=== PATIENT | male | born 2000 | race American Indian/Alaskan Native ===

== ENCOUNTER 2021-12-19 03:06 | Inpatient (IN) ==
[2021-12-19] MEDS ORDERED: Charcoal ACTIVATED 25 GM/120 ML BTL PO ONE (03:48)
[2021-12-19] MEDS ORDERED: Lactated Ringers 1000 ml BAG 1,000 ML IV ONE (03:48)
[2021-12-19 04:06] LABS: ABS Lymphocytes 0.9 10^3/ul (1.0-4.8); ABS Monocytes 1.1 10^3/ul (0-0.8); ABS Neutrophils 13.5 10^3/ul (1.5-7.7); Eosinophil % 0.2 %; Hematocrit 49 % (42-52); Hemoglobin 16.1 g/dL (14.0-18.0); Lymphocyte % 5.7 %; Mean Corpuscular HGB Conc 33 g/dL (31-36); Mean Corpuscular Hemoglobin 27 pg (27-31); Mean Corpuscular Volume 82 fL (80-94); Mean Platelet Volume 7.7 fL (7.4-10.4); Platelet Count 299 10^3/uL (150-450); Red Blood Count 5.91 10^6 /uL (4.18-5.48); Red Cell Distribution Width 14 % (10-15); White Blood Count 15.5 10^3/uL (3.5-10.8)
[2021-12-19 04:10] LABS: Urine Appearance Clear; Urine Bilirubin Negative (Negative); Urine Blood Negative (Negative); Urine Color Amber; Urine Glucose 1+(50 mg/dL) (Negative); Urine Ketones 2+ (Negative); Urine Nitrite Negative (Negative); Urine Protein 1+(30 mg/dL) (Negative); Urine Specific Gravity 1.041 (1.002-1.030); Urine Urobilinogen Positive (Negative)
[2021-12-19 04:16] LABS: Urine Bacteria Absent (Absent); Urine Red Blood Cell 2+(6-10/hpf) (Absent); Urine Squamous Epithelial Cell Present (Absent); Urine White Blood Cell Trace(0-5/hpf) (Absent)
[2021-12-19 04:22] LABS: Urine Benzodiazepine Screen None Detected (None Detect); Urine Cannabinoids Screen None Detected (None Detect); Urine Opiates Screen None Detected (None Detect)
[2021-12-19 04:38] LABS: Albumin 4.7 g/dL (3.2-5.2); Albumin/Globulin Ratio 1.8 (1-3); Alcohol, S < 13 mg/dL (<13); Alkaline Phosphatase 100 U/L (35-149); Anion Gap 12 mmol/L (2-11); Blood Urea Nitrogen 13 mg/dL (6-24); CO2 Carbon Dioxide 21 mmol/L (22-32); Calcium 9.5 mg/dL (8.6-10.3); Chloride 103 mmol/L (101-111); Globulin 2.6 g/dL (2-4); Glucose 140 mg/dL (70-100); Potassium 3.8 mmol/L (3.5-5.0); Salicylate < 2.50 mg/dL (<30); Sodium 136 mmol/L (135-145); Total Protein 7.3 g/dL (6.4-8.9); eGFR CKD-EPI 123.8 (>60)
[2021-12-19 04:43] LABS: Acetaminophen 123 mcg/mL
[2021-12-19 04:52] LABS: TSH Ultra Thyroid Stim Horm 0.93 mcIU/mL (0.34-5.60)
[2021-12-19 04:55] LABS: ALT 907 U/L (7-52); AST 1478 U/L (13-39)
[2021-12-19] MEDS ORDERED: ACETYLCYSTEINE IV ONE ×5 (05:15→22:00)
[2021-12-19] MEDS ORDERED: D5W IV ONE ×5 (05:15→22:00)
[2021-12-19 05:58] LABS: INR 1.81 (0.86-1.15)
[2021-12-19] MEDS ORDERED: Droperidol 5 MG/2 ML 2 ML VIAL IV ONE (06:11)
[2021-12-19] MEDS ORDERED: Ondansetron 4 mg VIAL 2 MG/ML 2 ml VIAL IV PRN (06:13)
[2021-12-19] MEDS ORDERED: diPHENhydraMINE IV 50 MG/ML 1 ml VIAL (BENADRYL) ONE (06:28)
[2021-12-19] MEDS ORDERED: diPHENhydraMINE IV 50 MG/ML 1 ml VIAL (BENADRYL) SLOW PUSH ONE (06:29)
[2021-12-19] MEDS ORDERED: diPHENhydraMINE IV 50 MG/ML 1 ml VIAL (BENADRYL) IV PRN (06:51)
[2021-12-19] MEDS ORDERED: FOMEPIZOLE IV ONE (07:00)
[2021-12-19] MEDS ORDERED: Pantoprazole VIAL 40 MG VIAL IV SCH (07:00)
[2021-12-19] MEDS ORDERED: NS 0.9% IV ONE (07:00)
[2021-12-19] MEDS: Pantoprazole VIAL 40 MG VIAL IV SCH (09:40)
[2021-12-19] MEDS ORDERED: ACETYLCYSTEINE IV SCH (10:15)
[2021-12-19] MEDS ORDERED: D5W IV SCH (10:15)
[2021-12-19 10:42] LABS: INR 1.87 (0.86-1.15)
[2021-12-19 10:50] LABS: Albumin 3.9 g/dL (3.2-5.2); Albumin/Globulin Ratio 1.9 (1-3); Calcium 8.8 mg/dL (8.6-10.3); Globulin 2.1 g/dL (2-4); Potassium 3.5 mmol/L (3.5-5.0); Total Bilirubin 1.2 mg/dL (0.2-1.0); eGFR CKD-EPI 126.9 (>60)
[2021-12-19 10:56] LABS: HIV 4th Generation Nonreactive (Nonreactive)
[2021-12-19 14:40] LABS: INR 1.76 (0.86-1.15)
[2021-12-19 15:10] LABS: Albumin 3.8 g/dL (3.2-5.2); Albumin/Globulin Ratio 1.7 (1-3); Direct Bilirubin 0.3 mg/dL (0.03-0.18); Globulin 2.2 g/dL (2-4); Indirect Bilirubin 0.8 mg/dL (0.3-1.0); Total Bilirubin 1.1 mg/dL (0.2-1.0)
[2021-12-19 19:57] LABS: INR 1.66 (0.86-1.15)
[2021-12-19 20:39] LABS: Acetaminophen < 15 mcg/mL; Albumin 4.1 g/dL (3.2-5.2); Albumin/Globulin Ratio 1.7 (1-3); Alkaline Phosphatase 76 U/L (35-149); Anion Gap 9 mmol/L (2-11); Blood Urea Nitrogen 5 mg/dL (6-24); CO2 Carbon Dioxide 24 mmol/L (22-32); Chloride 105 mmol/L (101-111); Globulin 2.4 g/dL (2-4); Glucose 130 mg/dL (70-100); Potassium 3.6 mmol/L (3.5-5.0); Sodium 138 mmol/L (135-145); Total Protein 6.5 g/dL (6.4-8.9); eGFR CKD-EPI 130.3 (>60)
[2021-12-19 21:01] LABS: ALT 1744 U/L (7-52); AST 1788 U/L (13-39)
[2021-12-20 04:37] LABS: ABS Eosinophils 0.3 10^3/ul (0-0.6); ABS Lymphocytes 1.8 10^3/ul (1.0-4.8); ABS Monocytes 0.7 10^3/ul (0-0.8); ABS Neutrophils 6.5 10^3/ul (1.5-7.7); Eosinophil % 3.6 %; Hematocrit 45 % (42-52); Hemoglobin 15.4 g/dL (14.0-18.0); Lymphocyte % 19.4 %; Mean Corpuscular HGB Conc 34 g/dL (31-36); Mean Corpuscular Hemoglobin 28 pg (27-31); Mean Corpuscular Volume 82 fL (80-94); Mean Platelet Volume 7.5 fL (7.4-10.4); Platelet Count 254 10^3/uL (150-450); Red Blood Count 5.52 10^6 /uL (4.18-5.48); Red Cell Distribution Width 14 % (10-15); White Blood Count 9.4 10^3/uL (3.5-10.8)
[2021-12-20 04:51] LABS: INR 1.55 (0.86-1.15)
[2021-12-20 05:52] LABS: Albumin/Globulin Ratio 1.8 (1-3); Calcium 8.9 mg/dL (8.6-10.3); Globulin 2.2 g/dL (2-4); Potassium 4.1 mmol/L (3.5-5.0); Total Bilirubin 1.4 mg/dL (0.2-1.0); Total Protein 6.2 g/dL (6.4-8.9); eGFR CKD-EPI 127.4 (>60)
[2021-12-20] MEDS: Pantoprazole VIAL 40 MG VIAL IV SCH (09:18)
[2021-12-20 15:08] LABS: Albumin 3.6 g/dL (3.2-5.2); Albumin/Globulin Ratio 1.8 (1-3); Alkaline Phosphatase 57 U/L (35-149); Blood Urea Nitrogen 3 mg/dL (6-24); CO2 Carbon Dioxide 29 mmol/L (22-32); Calcium 8.3 mg/dL (8.6-10.3); Chloride 105 mmol/L (101-111); Glucose 107 mg/dL (70-100); Sodium 139 mmol/L (135-145); Total Protein 5.6 g/dL (6.4-8.9); eGFR CKD-EPI 130.3 (>60)
[2021-12-20 15:59] LABS: Anion Gap 5 mmol/L (2-11)
[2021-12-20 18:02] LABS: ALT 1022 U/L (7-52)
[2021-12-21 07:00] LABS: ABS Eosinophils 0.5 10^3/ul (0-0.6); ABS Lymphocytes 2.1 10^3/ul (1.0-4.8); ABS Monocytes 0.9 10^3/ul (0-0.8); ABS Neutrophils 5.5 10^3/ul (1.5-7.7); Eosinophil % 5.1 %; Hematocrit 46 % (42-52); Hemoglobin 15.4 g/dL (14.0-18.0); Lymphocyte % 23.2 %; Mean Corpuscular HGB Conc 34 g/dL (31-36); Mean Corpuscular Hemoglobin 28 pg (27-31); Mean Corpuscular Volume 83 fL (80-94); Mean Platelet Volume 7.9 fL (7.4-10.4); Nucleated Red Blood Cells % 0.1; Platelet Count 253 10^3/uL (150-450); Red Blood Count 5.51 10^6 /uL (4.18-5.48); Red Cell Distribution Width 14 % (10-15)
[2021-12-21 07:05] LABS: INR 1.2 (0.86-1.15)
[2021-12-21 07:12] LABS: Albumin 4.2 g/dL (3.2-5.2); Albumin/Globulin Ratio 1.7 (1-3); Calcium 9.6 mg/dL (8.6-10.3); Globulin 2.5 g/dL (2-4); Potassium 3.8 mmol/L (3.5-5.0); Total Bilirubin 1.4 mg/dL (0.2-1.0); Total Protein 6.7 g/dL (6.4-8.9); eGFR CKD-EPI 137.3 (>60)
[2021-12-21] MEDS ORDERED: Nicotine GUM 2MG FRUIT FLAVOR PO PRN (21:50)
[2021-12-21] MEDS ORDERED: Al Hydrox/Mg Hydrox/Simet LIQ 30 ML UDC PO PRN (21:50)
[2021-12-22] MEDS: Multivitamins/Minerals TAB PO SCH (07:13)
[2021-12-22 08:09] LABS: Albumin/Globulin Ratio 1.6 (1-3); Direct Bilirubin 0.2 mg/dL (0.03-0.18); Globulin 3.1 g/dL (2-4); HDL Cholesterol 35.8 mg/dL; Total Bilirubin 1.2 mg/dL (0.2-1.0); Total Protein 8.1 g/dL (6.4-8.9)
[2021-12-23] MEDS: Multivitamins/Minerals TAB PO SCH (07:53)
[2021-12-24] MEDS: Multivitamins/Minerals TAB PO SCH (08:45)
[2021-12-25 07:52] LABS: Albumin 5.3 g/dL (3.2-5.2); Albumin/Globulin Ratio 1.6 (1-3); Calcium 10.7 mg/dL (8.6-10.3); Globulin 3.4 g/dL (2-4); Potassium 4.3 mmol/L (3.5-5.0); Total Bilirubin 0.9 mg/dL (0.2-1.0); Total Protein 8.7 g/dL (6.4-8.9); eGFR CKD-EPI 97.3 (>60)
[2021-12-25] MEDS: Multivitamins/Minerals TAB PO SCH (09:59)
[2021-12-26] MEDS: Multivitamins/Minerals TAB PO SCH (09:32)
[2021-12-27] MEDS: Multivitamins/Minerals TAB PO SCH (09:21)
[2021-12-28 07:50] VITALS: BP 133/79
[2021-12-28] MEDS: Multivitamins/Minerals TAB PO SCH (08:26)
== END 2021-12-28 11:48 | disposition home or self-care (01) | DRG 918 ==
LOC: ED 03:06 → SUATTDRO 06:13 → EDHOLD 06:13 → ICU 08:34 → MEDTELE 12-20 20:18 → BSU 12-21 19:21
PROVIDERS: ADMIT Hospitalist; ATTEND Student in an Organized Health Care Education/Training Program